=== PATIENT | female | born 1990 | race Caucasian/White ===

== ENCOUNTER → 2020-01-24 | Outpatient (CLI) | payer BC ==
--- NOTE | 2020-01-24 17:52 | RAD ---
Examination: PREG MORE THAN OR EQ TO 14 WKS History: Reason: SIZE AND DATES DISCREPANCY / Spl. Instructions: / History: Comparison/Correlation: None Findings: OB ultrasound exam was performed. Single living intrauterine gestation is present with heart rate of 136 bpm. movement and cardiac activity are seen. Entry located placenta is present. Amniotic fluid index is normal measuring 10.3 cm. Four-chamber heart, breathing motion, 3 vessel cord, cord insertion, fluid in the bladder, stomach, kidneys, spine, brain, and cephalic lie are seen. Biparietal diameter is 8.7 cm corresponding to 35 weeks 2 days. Head circumference is 32 cm corresponding to 36 week 1 day. Abdominal circumference is 31.4 cm corresponding to 35 weeks 2 days. Femur length 7.2 cm corresponding to 37 weeks 0 day. History-abdominal circumference ratio is 1.02. Estimated weight is 2786 g. gestational age is 36 weeks 0 day noted. Ultrasound EDC is 02/21/2020. Maternal cervical length is 4.1 cm. Impression: Single living intrauterine gestation with average ultrasound age of 36 weeks 0 days. This is 1 week 4 days less than expected compared to age by last menstrual period. Electronically signed by: Parth Barker MD (01/24/2020 5:50 PM) [id number]
== END ==
LOC: US 12:47 → MERGE 12:47
PROVIDERS: ATTEND Obstetrics & Gynecology
DX: O26.843 Uterine size-date discrepancy, third trimester (principal); Z3A.36 36 weeks gestation of pregnancy
CPT/HCPCS: 76805